=== PATIENT | female | born 1995 | race American Indian/Alaskan Native ===

== ENCOUNTER 2017-11-15 20:17 | Emergency (ER) | payer MEDICAID ==
[2017-11-15 20:20] VITALS: BMI 23.9
[2017-11-15 20:31] VITALS: RESP 18
[2017-11-15] MEDS ORDERED: Sodium Chloride 0.9% 1,000 ML IV STA (20:42)
--- NOTE | 2017-11-15 21:16 | ED PDOC ---
Arrival/HPI <Krystian Henderson - Last Filed: 11/16/17 01:00> - General Historian: Patient - History of Present Illness Time/Duration: > month <Angelina Weber - Last Filed: 11/16/17 01:58> - General Chief Complaint: Abdominal Pain Time Seen by Provider: 11/15/17 20:42 - History of Present Illness Narrative History of Present Illness (Text): 11/15/17 21:13 22yr old female presents today with 1 month history of lower abdominal pain. pt states about 1 month ago she was diagnosed with gonorrhea and has been treated by [facility] with rocephin and zithromax. pt states since then she has had continued lower abdominal pain. pt states she just completed levaquin and was on diflucan. pt states she has not had sex with her partner for the past month due to recent infection. pt denies vomiting/diarrhea. no cp or sob. no dizziness or weakness. pt is also c/o mosquito bites to thighs, legs and arms. pt denies urinary symptoms. no bladder or bowel incontinence. no back pain. no other complaints. Pt states she has not taken any medications for pain at home for the past month. (Angelina Weber) Past Medical History - Provider Review Nursing Documentation Reviewed: Yes - Travel History Have you recently traveled outside [place] w/in the past 3 mons?: No - Tetanus Immunization Tetanus Immunization: Unknown <Angelina Weber - Last Filed: 11/16/17 01:58> Family/Social History - Physician Review Nursing Documentation Reviewed: Yes Family/Social History: Unknown Family HX Smoking Status: Never Smoked Frequency of alcohol use: Socially Hx Substance Use: No <Angelina Weber - Last Filed: 11/16/17 01:58> Allergies/Home Meds <Krystian Henderson - Last Filed: 11/16/17 01:00> <Angelina Weber - Last Filed: 11/16/17 01:58> Allergies/Adverse Reactions: Allergies No Known Allergies Allergy (Verified 11/15/17 20:20) Review of Systems - Review of Systems Constitutional: absent: Fatigue, Fevers Respiratory: absent: SOB, Cough Cardiovascular: absent: Chest Pain, Palpitations Gastrointestinal: Abdominal Pain. absent: Constipation, Diarrhea, Nausea, Vomiting Genitourinary Female: Vaginal Discharge. absent: Dysuria, Frequency, Hematuria , Vaginal Bleeding Musculoskeletal: absent: Arthralgias, Back Pain, Neck Pain Skin: absent: Rash, Pruritis Neurological: absent: Headache, Dizziness Psychiatric: absent: Anxiety, Depression, Suicidal Ideation <Angelina Weber - Last Filed: 11/16/17 01:58> Physical Exam Vital Signs Reviewed: Yes Temperature: Afebrile Blood Pressure: Hypertensive Pulse: Regular Respiratory Rate: Normal Appearance: Positive for: Well-Appearing, Non-Toxic, Comfortable Pain Distress: None Mental Status: Positive for: Alert and Oriented X 3 - Systems Exam Head: Present: Atraumatic Mouth: Present: Moist Mucous Membranes Neck: Present: Normal Range of Motion Respiratory/Chest: Present: Clear to Auscultation, Good Air Exchange. No: Respiratory Distress, Accessory Muscle Use Cardiovascular: Present: Regular Rate and Rhythm, Normal S1, S2. No: Murmurs Abdomen: Present: Tenderness (+ minimal suprapubic abd tenderness and lower pelvic tenderness. ), Normal Bowel Sounds. No: Distention, Peritoneal Signs, Rebound, Guarding Genitourinary/Pelvic Exam: Present: Normal External Genitalia, Vaginal Discharge , Adenexal Tenderness (minimal bilateral adnexal tenderness. ), Cervical Motion Tendernes, Cervical os Closed, Other (chaparoned by jordan ALTMAN). No: Vaginal Bleeding, Vaginal Lesions, Adenexal Mass, Odor Back: Present: Normal Inspection. No: CVA Tenderness, Midline Tenderness, Paraspinal Tenderness Neurological: Present: GCS=15, Speech Normal Skin: Present: Warm, Dry, Normal Color. No: Rashes Psychiatric: Present: Alert, Oriented x 3 <Angelina Weber - Last Filed: 11/16/17 01:58> Vital Signs Temp Pulse Resp BP Pulse Ox 11/15/17 22:39 97.5 F L 99 H 18 120/66 100 11/15/17 20:30 97.7 F 96 H 18 133/91 H 100 Medical Decision Making <Krystian Henderson - Last Filed: 11/16/17 01:00> Reassessment Condition: Re-examined, Improved <Angelina Weber - Last Filed: 11/16/17 01:58> ED Course and Treatment: 11/15/17 21:22 Patient is nontoxic well appearing with stable vital signs presenting with 1 month history of worsening lower abdominal pain CBC: wnl CMP: wnl Lipase: wnl will recheck gc/chlamydia cultures as patient had + culture 1 month ago which was treated. Urinalysis: no leukocytes Ultrasound transvaginal: FINDINGS: Uterus/cervix: Endometrium thickness measures 1 cm. No myometrial mass. Right ovary: Right ovary measures 2.7 x 2 x 2.1 cm. Vascular flow in the right ovary. The right ovary, there is 1.5 x 0.7 cm cystic structure with internal echoes, likely complex cyst. 1.3 x 0.6 x 1.1 cm right paraovarian cystic structure. Left ovary: Left ovary not visualized. Free fluid: No free fluid. IMPRESSION: 1. Left ovary not visualized. 2. Right ovary measures 2.7 x 2 x 2.1 cm. Vascular flow in the right ovary. The right ovary, there is 1.5 x 0.7 cm cystic structure with internal echoes, likely complex cyst. 3. 1.3 x 0.6 x 1.1 cm right paraovarian cystic structure. CAT scan abd/pelvis: FINDINGS: Lower thorax: No acute findings. ABDOMEN: Liver: Normal. No mass. Gallbladder and bile ducts: The gallbladder is contracted with no stones. Pancreas: Normal. No ductal dilation. Spleen: Normal. No splenomegaly. Adrenals: Normal. No mass. Kidneys and ureters: Normal. No hydronephrosis. Stomach and bowel: Normal. No obstruction. No mucosal thickening. Appendix: Probable partial visualization of a normal appendix. PELVIS: Bladder: Unremarkable as visualized. Reproductive: Irregular right ovarian functional cyst measuring 2.4 x 1.7 cm. ABDOMEN and PELVIS: Intraperitoneal space: Normal. No free air. No significant fluid collection. Bones/joints: No acute fracture. No dislocation. Soft tissues: Unremarkable. Vasculature: Incidental note of an accessory retroaortic left renal vein. Lymph nodes: Normal. No enlarged lymph nodes. IMPRESSION: 1. Right ovarian functional cyst measuring 2.4 x 1.[address] cm[address] Otherwise negative CT abdomen/pelvis Patient reassessment:pt is non toxic well appearing; no distress: stable vitals. pt given rocephin 250mg IM and doxycycline 100mg. consider PID: will follow gc/chlamydia cultures. Discussed all results with patient in depth advised patient of ovarian cyst and need for f/u with [facility]. pt states she has appointment with [facility] tomorrow. PER nurse patient refused the rocephin, but took doxycycline; i advised patient that the injection is important; pt refused and again stated she is seeing the [facility] tomorrow. advised f/u with PMD and [facility]. advised immediate return if symptoms worsen, persist or if new symptoms develop. advised patient to take doxycycline twice daily x 14 days. pt was advised to avoid the sun due to sunburn. copy of ct and US given to patient to bring to [facility] tomorrow. Patient verbalizes understanding of discharge instructions and need for immediate followup. all aspects of this case were discussed the attending of record. Impression: pelvic pain, ovarian cyst, vaginal discharge Motrin every 6 hours as needed for pain doxycycline 1 tablet twice daily x 14 days. Increase fluids Follow up with the [facility] tomorrow. Follow up with primary care physician within the next 2 days Return immediately if symptoms worsen persist or if new symptoms develop: High fevers, increasing pain, vomiting, diarrhea or any other concerning symptoms develop (Angelina Weber T) - Lab Interpretations Lab Results: 11/15/17 21:48 11/15/17 22:46 Lab Results 11/15/17 22:46: Sodium 141, Potassium 4.3, Chloride 108 H, Carbon Dioxide 21, Anion Gap 16, BUN 11, Creatinine 0.7, Est GFR ( Amer) > 60, Est GFR (Non- Af Amer) > 60, Random Glucose 101, Calcium 9.5, Total Bilirubin 0.3, AST 16, ALT 13, Alkaline Phosphatase 47, Total Protein 7.6, Albumin 4.3, Globulin 3.3, Albumin/Globulin Ratio 1.3, Lipase 78 11/15/17 21:48: WBC 9.6, RBC 4.92, Hgb 13.6, Hct 40.5, MCV 82.3, MCH 27.6, MCHC 33.6, RDW 12.6, Plt Count 202, MPV 11.9 H, Gran % 62.5, Lymph % (Auto) 29.3, [place] % (Auto) 7.8 H, Eos % (Auto) 0.2 L, Baso % (Auto) 0.2, Gran # 6.02, Lymph # (Auto) 2.8, [place] # (Auto) 0.8 H, Eos # (Auto) 0.0, Baso # (Auto) 0.02 11/15/17 20:47: Urine Color Yellow, Urine Appearance Sl cloudy, Urine pH 6.0, Ur Specific [place] 1.025, Urine Protein Trace H, Urine Glucose (UA) Negative, Urine Ketones 15 H, Urine Blood Negative, Urine Nitrate Negative, Urine Bilirubin Negative, Urine Urobilinogen 0.2, Ur Leukocyte Esterase Negative, Urine RBC Negative, Urine WBC 0 - 2, Ur Epithelial Cells 1 - 3 - RAD Interpretation Radiology Orders: 11/15/17 21:12 ABD & PELVIS IV CONTRAST ONLY [CT] Stat TRANSVAGINAL [US] Stat - Medication Orders Current Medication Orders: Discontinued Medications Ceftriaxone Sodium (Rocephin) 250 mg IM STAT STA PRN Reason: Protocol Stop: 11/16/17 01:40 Doxycycline Hyclate (Doryx) 100 mg PO STAT STA PRN Reason: Protocol Stop: 11/16/17 01:34 Sodium Chloride (Sodium Chloride 0.9%) 1,000 mls @ 999 mls/hr IV .Q1H1M STA Stop: 11/15/17 21:42 Last Admin: 11/15/17 21:57 Dose: 999 mls/hr eMAR Start Stop Document 11/15/17 21:57 SS (Rec: 11/15/17 21:57 SS [id number]) Intravenous Solution Start Date 11/15/17 Start Time 21:57 End Date 11/15/17 End time 22:57 Total Infusion Time 60 Ketorolac Tromethamine (Toradol) 30 mg IVP STAT STA Stop: 11/16/17 01:38 - PA / [employer] / Resident Statement / has reviewed & agrees with the documentation as recorded. <Krystian Henderson - Last Filed: 11/16/17 01:00> Disposition/Present on Arrival <Krystian Henderson - Last Filed: 11/16/17 01:00> - Present on Arrival Any Indicators Present on Arrival: No History of DVT/PE: No History of Uncontrolled Diabetes: No Urinary Catheter: No History of Decub. Ulcer: No History Surgical Site Infection Following: None - Disposition Have Diagnosis and Disposition been Completed?: Yes Disposition Time: 01:20 Patient Plan: Discharge <Angelina Weber - Last Filed: 11/16/17 01:58> - Disposition Diagnosis: Pelvic pain, Ovarian cyst, Vaginal discharge Disposition: HOME/ ROUTINE Patient Problems: Current Active Problems Problem Status Onset Ovarian cyst Acute Pelvic pain Acute Vaginal discharge Acute Condition: GOOD Discharge Instructions (ExitCare): Ovarian Cysts, Vaginal Discharge in Adults, Acute Pelvic Pain Additional Instructions: Motrin every 6 hours as needed for pain doxycycline 1 tablet twice daily x 14 days. Increase fluids Follow up with the [facility] tomorrow. Follow up with primary care physician within the next 2 days Return immediately if symptoms worsen persist or if new symptoms develop: High fevers, increasing pain, vomiting, diarrhea or any other concerning symptoms develop. Prescriptions: Doxycycline Hyclate 100 mg PO BID #28 capsule Ibuprofen [Motrin] 600 mg PO Q6H PRN #20 tab PRN Reason: pain/fever reduction Referrals: Preston Wynn [Primary Care Provider] - Follow up with primary David Shukla MD [Staff Provider] - Follow up with primary Forms: [facility] ([place]), WORK NOTE
[2017-11-15 21:34] LABS: URINE APPEARANCE SL CLOUDY (CLEAR); URINE BILIRUBIN NEGATIVE (NEGATIVE); URINE BLOOD NEGATIVE (NEGATIVE); URINE COLOR YELLOW (YELLOW); URINE GLUCOSE (UA) NEGATIVE (NEGATIVE); URINE LEUKOCYTE ESTERASE NEGATIVE Leu/uL (NEGATIVE); URINE PROTEIN TRACE mg/dL (<30 mg/dL); URINE UROBILINOGEN 0.2 E.U./dL (<1 E.U./dL)
[2017-11-15 21:38] LABS: URINE RBC NEGATIVE /hpf (0-2); URINE WBC 0 - 2 /hpf (0-6)
[2017-11-15 22:23] LABS: BASO # 0.02 K/mm3 (0.0-2.0); BASO % 0.2 % (0.0-3.0); EOS % 0.2 % (1.5-5.0); GRAN # 6.02 (1.4-6.5); GRAN % 62.5 % (50.0-68.0); HEMOGLOBIN 13.6 g/dL (12.0-16.0); LYMPH # 2.8 (1.2-3.4); LYMPH % 29.3 % (22.0-35.0); MEAN CELL VOLUME 82.3 fl (80.0-105.0); MEAN CORPUSCULAR HEMOGLOBIN 27.6 pg (25.0-35.0); MEAN CORPUSCULAR HGB CONC 33.6 g/dl (31.0-37.0); MEAN PLATELET VOLUME 11.9 fl (7.0-11.0); MONO # 0.8 (0.1-0.6); MONO % 7.8 % (1.0-6.0); RBC 4.92 10^6/uL (3.5-6.1); RED CELL DISTRIBUTION WIDTH 12.6 % (11.5-14.5); WHITE BLOOD COUNT 9.6 10^3/ul (4.5-11.0)
[2017-11-15 22:40] VITALS: TEMP 97.5
[2017-11-15 23:08] LABS: ALB/GLOB RATIO 1.3 (1.1-1.8); ALBUMIN 4.3 g/dL (3.0-4.8); ALT/SGPT 13 U/L (7-56); AST/SGOT 16 U/L (14-36); BLOOD UREA NITROGEN 11 mg/dL (7-21); CALCIUM 9.5 mg/dL (8.4-10.5); GFR NON-AFRICAN AMERICAN > 60; LIPASE 78 U/L (23-300)
[2017-11-15] MEDS ORDERED: Iohexol 350 MG/100 ML VIAL ONE (23:34)
[2017-11-16] MEDS ORDERED: cefTRIAXone 1 gm 1 GM/100 ML BAG IVPB STA (01:33)
[2017-11-16] MEDS ORDERED: cefTRIAXone (Rocephin) 250 mg Inj IM STA (01:39)
[2017-11-16 01:58] VITALS: BP 121/60; PULSE 97; O2SAT 99
--- NOTE | 2017-11-16 10:16 | US ---
Date of service: 11/15/2017 HISTORY: pain COMPARISON: None available. TECHNIQUE: Transvaginal ultrasonography was performed with longitudinal and transverse projections submitted for interpretation. FINDINGS: UTERUS: Measures 7.6 x 3.3 x 5.3 cm. Normal in size and appearance. No fibroid or other mass lesion seen. ENDOMETRIUM: Measures 10.0 mm in diameter. Unremarkable. CERVIX: No cervical abnormality identified, with the cervix measuring 3.2 cm length. RIGHT OVARY: Measures 2.7 x 2.0 x 3.1 cm. No solid mass. Normal flow. A complex ovarian cyst is identified measuring 1.5 x 0.7 x 1.7 cm avascular on color Doppler ultrasound but with internal debris/ soft tissue and an approximate 3 mm rim. Otherwise, small follicles are seen. A simple cyst appearing paraovarian measures 1.3 x 0.6 x 1.1 cm. LEFT OVARY: Extensive bowel gas obscures the left adnexal compartment leftover was not identified. FREE FLUID: No significant free fluid noted. OTHER FINDINGS: None. IMPRESSION: 1. 1.5 cm complex cyst is seen in the right ovary. No sonographic evidence to suggest ovarian torsion. 2. Extensive bowel gas obscures imaging of the left adnexal part with no visualization of the left ovary. 3. The remainder of the examination is unremarkable.
--- NOTE | 2017-11-16 11:02 | CT ---
Date of service: 11/15/2017 PROCEDURE: CT Abdomen and Pelvis with contrast HISTORY: lower abd pain COMPARISON: None. TECHNIQUE: Contrast dose: 100 cc of Omnipaque 350 Radiation dose: Total exam DLP = 272 mGy-cm. This CT exam was performed using one or more of the following dose reduction techniques: Automated exposure control, adjustment of the mA and/or kV according to patient size, and/or use of iterative reconstruction technique. FINDINGS: LOWER THORAX: Unremarkable. LIVER: Unremarkable. No gross lesion or ductal dilatation. GALLBLADDER AND BILE DUCTS: Unremarkable. PANCREAS: Unremarkable. No gross lesion or ductal dilatation. SPLEEN: Unremarkable. ADRENALS: Unremarkable. No mass. KIDNEYS AND URETERS: Unremarkable. No hydronephrosis. No solid mass. VASCULATURE: Unremarkable. No aortic aneurysm. BOWEL: Unremarkable. No obstruction. No gross mural thickening. APPENDIX: Normal appendix. PERITONEUM: Unremarkable. No free fluid. No free air. LYMPH NODES: Unremarkable. No enlarged lymph nodes. BLADDER: Unremarkable. REPRODUCTIVE: There is an involuting right ovarian cyst with an enhancing wall. This measures 25 mm diameter BONES: No acute fracture. OTHER FINDINGS: The report concurs with the preliminary [facility] report IMPRESSION: There is an involuting right ovarian cyst with an enhancing wall. This measures 25 mm diameter No acute intra-abdominal findings
== END 2017-11-16 02:09 | disposition home or self-care (01) ==
LOC: ED 20:17
DX: R10.2 Pelvic and perineal pain (principal); N83.201 Unspecified ovarian cyst, right side; N89.8 Other specified noninflammatory disorders of vagina
CPT/HCPCS: 74177; 76830; 80053; 81001; 83690; 85025; 87491; 87591; 96361; 96374; 99284; J1885; J7030; Q9967